=== PATIENT | female | born 1940 | race Caucasian/White ===

== ENCOUNTER → 2017-07-08 | Outpatient (CLI) | payer MEDICARE ==
--- NOTE | 2017-07-09 13:33 | MM ---
Reason for exam: screening (asymptomatic). Last mammogram was performed 1 year and 1 month ago. History: Patient is postmenopausal. Benign excisional biopsy of the left breast, 1959. Physical Findings: A clinical breast exam by your physician is recommended on an annual basis and results should be correlated with mammographic findings. MG 3D Screening Mammo W/Cad Bilateral CC and MLO view(s) were taken. Prior study comparison: June 19, 2016, bilateral MG 3d screening mammo w/cad. March 16, 2015, bilateral MG screening mammo w CAD. No significant changes when compared with prior studies. ASSESSMENT: Benign, BI-RAD 2 RECOMMENDATION: Routine screening mammogram of both breasts in 1 year.
== END | disposition home or self-care (01) ==
LOC: RADMAMWWP 10:31
PROVIDERS: ATTEND General Practice
DX: Z12.31 Encounter for screening mammogram for malignant neoplasm of breast (principal)
CPT/HCPCS: 77063; G0202

== ENCOUNTER 2017-12-01 09:38 | Emergency (ER) | payer MEDICARE ==
[2017-12-01 09:50] VITALS: RESP 18; TEMP 98.4
[2017-12-01 10:22] LABS: Basophils % (A) 0 %; Eosinophils # (A) 0.1 k/uL (0-0.7); Eosinophils % (A) 1 %; HCT 42.3 % (34.0-46.0); HGB 14.1 gm/dL (11.4-16.0); Lymphocytes # (A) 0.7 k/uL (1.0-4.8); Lymphocytes % (A) 6 %; MCH 30.5 pg (25.0-35.0); MCHC 33.4 g/dL (31.0-37.0); MCV 91.2 fL (80.0-100.0); Monocytes # (A) 0.3 k/uL (0-1.0); Monocytes % (A) 3 %; Neutrophils # (A) 10.7 k/uL (1.3-7.7); Neutrophils % (A) 90 %; Platelet Count 169 k/uL (150-450); RBC 4.64 m/uL (3.80-5.40); RDW 13.2 % (11.5-15.5); WBC 11.9 k/uL (3.8-10.6)
--- NOTE | 2017-12-01 10:28 | ED ---
GI Bleed HPI - General Chief complaint: GI Bleed Stated complaint: Blood in stool Time Seen by Provider: 12/01/17 10:01 Source: patient, family, RN notes reviewed Mode of arrival: ambulatory - History of Present Illness Initial comments: This is a 77-year-old female with no prior history of GI problems who states she developed diarrhea 2 days ago at times she would have crampy abdominal pain dizziness cold sweats. He states about 2 to 3:00 this morning he started developing bright red blood per rectum. She has urgency to have a bowel movement no other symptoms reported. No prior abdominal surgeries she states the pain was so severe was worse and she recalled with labor pains. No history of hemorrhoid problems. No abdominal surgeries. No recent foreign travel no fluids or eat by her but no one else in the family. MD complaint: gross hematochezia - Related Data Home Medications Medication Instructions Recorded Confirmed Milk Thistle 150 mg PO DAILY 05/25/16 12/01/17 Red Yeast Rice 600 mg PO DAILY 05/25/16 12/01/17 Ubidecarenone [Co Q-10] 100 mg PO DAILY 05/25/16 12/01/17 Atenolol (Unk. Dose) 1 tab PO QAM 12/01/17 12/01/17 Fluticasone Nasal [place] [Flonase 1 spray EA NOSTRIL DAILY PRN 12/01/17 12/01/17 Nasal [place]] Hydrochlorothiazide (Unk Dose) 1 tab PO QAM 12/01/17 12/01/17 Lipitor (Unk. Dose) 1 tab PO HS 12/01/17 12/01/17 Metformin (Unknown Dose) 1 tab PO DAILY 12/01/17 12/01/17 Potassium (Unk. Dose) 1 tab PO DIRECTED 12/01/17 12/01/17 Unknown Diuretic 1 tab PO DAILY 12/01/17 12/01/17 Previous Rx's Medication Instructions Recorded Dicyclomine [Bentyl] 10 mg PO TID #6 capsule 12/01/17 Hydrocortisone Suppository 25 mg RECTAL BID #10 supp 12/01/17 [Anusol-Hc] Allergies Allergy/AdvReac Type Severity Reaction Status Date / Time acetaminophen [From Tylenol] Allergy Itching Verified 12/01/17 10:58 Review of Systems ROS Statement: Those systems with pertinent positive or pertinent negative responses have been documented in the HPI. ROS Other: All systems not noted in ROS Statement are negative. Past Medical History Past Medical History: Diabetes Mellitus, Hyperlipidemia, Hypertension, Thyroid Disorder History of Any Multi-Drug Resistant Organisms: None Reported Additional Past Surgical History / Comment(s): Thyroid biopsy, lt wrist surgery Past Anesthesia/Blood Transfusion Reactions: No Reported Reaction Past Psychological History: No Psychological Hx Reported Smoking Status: Never smoker Past Alcohol Use History: None Reported Past Drug Use History: None Reported - Past Family History Mother Family Medical History: No Reported History General Exam - General Exam Comments Initial Comments: This is a well-developed well-nourished awake alert oriented 3 female General appearance: alert, in no apparent distress Head exam: Present: atraumatic, normocephalic, normal inspection Eye exam: Present: normal appearance, PERRL, EOMI. Absent: scleral icterus, conjunctival injection, periorbital swelling ENT exam: Present: normal exam, mucous membranes moist Neck exam: Present: normal inspection. Absent: tenderness, meningismus, lymphadenopathy Respiratory exam: Present: normal lung sounds bilaterally. Absent: respiratory distress, wheezes, rales, rhonchi, stridor Cardiovascular Exam: Present: regular rate, normal rhythm, normal heart sounds. Absent: systolic murmur, diastolic murmur, rubs, gallop, clicks GI/Abdominal exam: Present: soft, normal bowel sounds. Absent: distended, tenderness, guarding, rebound, rigid, bruit, pulsatile mass, hernia Rectal exam: Present: heme (+) stool, other (No masses some external hemorrhoids one is somewhat dark but nontender with no evidence of any active bleeding. Evidence of some internal hemorrhoids small amount of pink blood on the fingertip no masses on deep her examination.) Extremities exam: Present: normal inspection, full ROM, normal capillary refill. Absent: tenderness, pedal edema, joint swelling, calf tenderness Back exam: Present: normal inspection Neurological exam: Present: alert, oriented X3, CN II-XII intact Psychiatric exam: Present: normal affect, normal mood Skin exam: Present: warm, dry, intact, normal color. Absent: rash Course Vital Signs 12/01/17 12/01/17 12/01/17 09:47 11:38 12:58 Temperature 98.4 F Pulse Rate 80 71 79 Respiratory 18 18 18 Rate Blood Pressure 140/83 157/75 140/73 O2 Sat by Pulse 94 L 95 95 Oximetry 12/01/17 14:23 Temperature Pulse Rate 81 Respiratory 18 Rate Blood Pressure 157/76 O2 Sat by Pulse 95 Oximetry Medical Decision Making - Medical Decision Making I did discuss the findings the patient family members presentation is consistent with bleeding hemorrhoids after having diarrhea for 2 days. Hemoglobin and hematocrit are within normal limits. Patient did have hypokalemia which she has had a history of before she does take supplementation. Magnesium level was low normal and she was dehydrated. She did receive IV fluids IV magnesium oral past him. She will be discharged on appropriate medication with follow-up with her doctor and return when necessary - Lab Data Result diagrams: 12/01/17 10:06 12/01/17 10:06 Lab Results 12/01/17 12/01/17 12/01/17 Range/Units 10:06 10:06 10:06 WBC 11.9 H (3.8-10.6) k/uL RBC 4.64 (3.80-5.40) m/uL Hgb 14.1 (11.4-16.0) gm/dL Hct 42.3 (34.0-46.0) % MCV 91.2 (80.0-100.0) fL MCH 30.5 (25.0-35.0) pg MCHC 33.4 (31.0-37.0) g/dL RDW 13.2 (11.5-15.5) % Plt Count 169 (150-450) k/uL Neutrophils % 90 % Lymphocytes % 6 % Monocytes % 3 % Eosinophils % 1 % Basophils % 0 % Neutrophils # 10.7 H (1.3-7.7) k/uL Lymphocytes # 0.7 L (1.0-4.8) k/uL Monocytes # 0.3 (0-1.0) k/uL Eosinophils # 0.1 (0-0.7) k/uL Basophils # 0.0 (0-0.2) k/uL PT (9.0-12.0) sec INR (<1.2) APTT (22.0-30.0) sec Sodium 139 (137-145) mmol/L Potassium 3.1 L (3.5-5.1) mmol/L Chloride 98 (98-107) mmol/L Carbon Dioxide 29 (22-30) mmol/L Anion Gap 12 mmol/L BUN 29 H (7-17) mg/dL Creatinine 0.92 (0.52-1.04) mg/dL Est GFR (MDRD) Af Amer >60 (>60 ml/min/1.73 sqM) Est GFR (MDRD) Non-Af 59 (>60 ml/min/1.73 sqM) Glucose 223 H (74-99) mg/dL Calcium 9.5 (8.4-10.2) mg/dL Magnesium 1.6 (1.6-2.3) mg/dL Total Bilirubin 0.5 (0.2-1.3) mg/dL AST 25 (14-36) U/L ALT 37 (9-52) U/L Alkaline Phosphatase 85 (38-126) U/L Total Creatine Kinase 56 (30-135) U/L CK-MB (CK-2) 0.4 (0.0-2.4) ng/mL CK-MB (CK-2) Rel Index 0.7 Troponin I <0.012 (0.000-0.034) ng/mL Total Protein 6.4 (6.3-8.2) g/dL Albumin 4.1 (3.5-5.0) g/dL Lipase 112 (23-300) U/L Stool Occult Blood (Negative) Blood Type Blood Type Recheck Antibody Screen Spec Expiration Date 12/01/17 12/01/17 12/01/17 Range/Units 10:06 10:06 10:24 WBC (3.8-10.6) k/uL RBC (3.80-5.40) m/uL Hgb (11.4-16.0) gm/dL Hct (34.0-46.0) % MCV (80.0-100.0) fL MCH (25.0-35.0) pg MCHC (31.0-37.0) g/dL RDW (11.5-15.5) % Plt Count (150-450) k/uL Neutrophils % % Lymphocytes % % Monocytes % % Eosinophils % % Basophils % % Neutrophils # (1.3-7.7) k/uL Lymphocytes # (1.0-4.8) k/uL Monocytes # (0-1.0) k/uL Eosinophils # (0-0.7) k/uL Basophils # (0-0.2) k/uL PT 9.4 (9.0-12.0) sec INR 0.9 (<1.2) APTT 19.9 L (22.0-30.0) sec Sodium (137-145) mmol/L Potassium (3.5-5.1) mmol/L Chloride (98-107) mmol/L Carbon Dioxide (22-30) mmol/L Anion Gap mmol/L BUN (7-17) mg/dL Creatinine (0.52-1.04) mg/dL Est GFR (MDRD) Af Amer (>60 ml/min/1.73 sqM) Est GFR (MDRD) Non-Af (>60 ml/min/1.73 sqM) Glucose (74-99) mg/dL Calcium (8.4-10.2) mg/dL Magnesium (1.6-2.3) mg/dL Total Bilirubin (0.2-1.3) mg/dL AST (14-36) U/L ALT (9-52) U/L Alkaline Phosphatase (38-126) U/L Total Creatine Kinase (30-135) U/L CK-MB (CK-2) (0.0-2.4) ng/mL CK-MB (CK-2) Rel Index Troponin I (0.000-0.034) ng/mL Total Protein (6.3-8.2) g/dL Albumin (3.5-5.0) g/dL Lipase (23-300) U/L Stool Occult Blood Positive H (Negative) Blood Type AB Negative Blood Type Recheck CABO Indicated Antibody Screen NEGATIVE Spec Expiration Date 12/01/17 1200 Disposition Clinical Impression: Hemorrhoids, Diarrhea, Hypokalemia, Dehydration Disposition: HOME SELF-CARE Condition: Good Instructions: Rectal Bleeding (ED), Hemorrhoids (ED), Dehydration (ED), Hypokalemia (ED) Additional Instructions: Continue with your current potassium prescription Prescriptions: Dicyclomine [Bentyl] 10 mg PO TID #6 capsule Hydrocortisone Suppository [Anusol-Hc] 25 mg RECTAL BID #10 supp Referrals: Sanjana Campos MD [Primary Care Provider] - 1-2 days
[2017-12-01 10:29] LABS: ALT 37 U/L (9-52); AST 25 U/L (14-36); Albumin 4.1 g/dL (3.5-5.0); Alkaline Phosphatase 85 U/L (38-126); Anion Gap 12 mmol/L; Blood Urea Nitrogen 29 mg/dL (7-17); Calcium 9.5 mg/dL (8.4-10.2); Carbon Dioxide 29 mmol/L (22-30); Chloride 98 mmol/L (98-107); Glucose 223 mg/dL (74-99); Lipase 112 U/L (23-300); Magnesium 1.6 mg/dL (1.6-2.3); Potassium 3.1 mmol/L (3.5-5.1); Sodium 139 mmol/L (137-145); Total Bilirubin 0.5 mg/dL (0.2-1.3); Total Protein 6.4 g/dL (6.3-8.2)
[2017-12-01 10:39] LABS: Creatine Kinase 56 U/L (30-135); INR 0.9 (<1.2); Prothrombin Time 9.4 sec (9.0-12.0)
--- NOTE | 2017-12-01 10:45 | XR ---
EXAMINATION TYPE: XR chest 2V DATE OF EXAM: 12/01/2017 HISTORY: pain. REFERENCE: Previous study dated 07/23/2008. FINDINGS: Lung volumes are prominent. The heart is mildly enlarged. There is some scarring in the rig ht midlung. The lungs are otherwise clear. Pleural spaces are clear. IMPRESSION: 1. COPD. 2. MILD CARDIOMEGALY.
--- NOTE | 2017-12-01 10:46 | XR ---
EXAMINATION TYPE: XR abdomen 1V , 2 VIEWS DATE OF EXAM ORDERED: 12/01/2017 HISTORY: Pain. COMPARISON: None. FINDINGS: The lung bases are clear. Within the abdomen, the abdominal gas pattern is normal. There is no evidence of obstruction or free air. No unusual calcifications are identified. IMPRESSION: NO ACUTE INTRA-ABDOMINAL ABNORMALITY.
[2017-12-01 10:52] LABS: Creatine Kinase MB 0.4 ng/mL (0.0-2.4); Troponin I <0.012 ng/mL (0.000-0.034)
[2017-12-01 11:48] LABS: Partial Thromboplastin Time 19.9 sec (22.0-30.0)
[2017-12-01] MEDS ORDERED: SODIUM CHLORIDE 0.9% 1,000 ML IV STA (12:31)
[2017-12-01] MEDS ORDERED: MAGNESIUM SULFATE-D5W PMX 1 GM in DEXTROSE/WATER 1 100ML.BAG IVPB ONE (12:31)
[2017-12-01] MEDS ORDERED: POTASSIUM CHLORIDE ER 20 MEQ TAB.ER PO STA (12:31)
[2017-12-01] MEDS ORDERED: KETOROLAC 30 MG/ML 1 ML VIAL IVP STA (12:42)
[2017-12-01] MEDS ORDERED: ONDANSETRON 4 MG/2 ML VIAL IVP STA (12:42)
[2017-12-01 15:09] VITALS: BP 150/79; PULSE 80
== END 2017-12-01 15:08 | disposition home or self-care (01) ==
LOC: EC 09:38
DX: K64.4 Residual hemorrhoidal skin tags (principal); K64.8 Other hemorrhoids; E86.0 Dehydration; E87.6 Hypokalemia; R19.7 Diarrhea, unspecified; E78.5 Hyperlipidemia, unspecified; I10 Essential (primary) hypertension; E11.9 Type 2 diabetes mellitus without complications; Z88.6 Allergy status to analgesic agent; Z79.84 Long term (current) use of oral hypoglycemic drugs; Z79.899 Other long term (current) drug therapy
CPT/HCPCS: 36415; 86900; 86901; 80053; 82550; 82553; 83690; 83735; 84484; 85025; 85610; 85730; 86850; 82272; 71046; 74018; 99285; 96374; 96375 ×2; 96361 ×2; J2405; J1885; J3475

== ENCOUNTER → 2018-07-17 | Outpatient (CLI) | payer MEDICARE ==
--- NOTE | 2018-07-21 09:50 | MM ---
Reason for exam: screening (asymptomatic). Last mammogram was performed 1 year ago. History: Patient is postmenopausal. Benign excisional biopsy of the left breast, 1960. Physical Findings: A clinical breast exam by your physician is recommended on an annual basis and results should be correlated with mammographic findings. MG 3D Screening Mammo W/Cad Bilateral CC and MLO view(s) were taken. Prior study comparison: July 08, 2017, bilateral MG 3d screening mammo w/cad. June 19, 2016, bilateral MG 3d screening mammo w/cad. The breast tissue is heterogeneously dense. This may lower the sensitivity of mammography. No significant changes when compared with prior studies. ASSESSMENT: Benign, BI-RAD 2 RECOMMENDATION: Routine screening mammogram of both breasts in 1 year.
== END | disposition home or self-care (01) ==
LOC: RADMAMWWP 10:57
PROVIDERS: ATTEND General Practice
DX: Z12.31 Encounter for screening mammogram for malignant neoplasm of breast (principal)
CPT/HCPCS: 77063; 77067

== ENCOUNTER → 2019-08-01 | Outpatient (CLI) | payer MEDICARE ==
--- NOTE | 2019-08-03 09:35 | MM ---
Reason for exam: screening (asymptomatic). Last mammogram was performed 1 year ago. History: Patient is postmenopausal. Benign excisional biopsy of the left breast, 1960. Physical Findings: A clinical breast exam by your physician is recommended on an annual basis and results should be correlated with mammographic findings. MG 3D Screening Mammo W/Cad Bilateral CC and MLO view(s) were taken. Prior study comparison: July 17, 2018, bilateral MG 3d screening mammo w/cad. July 08, 2017, bilateral MG 3d screening mammo w/cad. The breast tissue is heterogeneously dense. This may lower the sensitivity of mammography. New nodule right posterior CC view. May be to stable nodule on right MLO. Additional work up recommended. ASSESSMENT: Incomplete: need additional imaging evaluation, BI-RAD 0 RECOMMENDATION: Special view mammogram of the right breast. If lesion persists on supplemental views, image directed ultrasound is recommended. [facility] will attempt to contact patient to return for supplemental views and ultrasound if indicated.
== END | disposition home or self-care (01) ==
LOC: RADMAMWWP 10:25
PROVIDERS: ATTEND General Practice
DX: Z12.31 Encounter for screening mammogram for malignant neoplasm of breast (principal)
CPT/HCPCS: 77063; 77067

== ENCOUNTER → 2019-08-13 | Outpatient (CLI) | payer MEDICARE ==
--- NOTE | 2019-08-13 11:04 | MM ---
Reason for exam: additional evaluation requested from abnormal screening. Last mammogram was performed less than 1 month ago. History: Patient is postmenopausal. Benign excisional biopsy of the left breast, 1960. Physical Findings: Nurse did not find any significant physical abnormalities on exam. MG 3D Work Up W/Cad RT Spot compression CC and LM view(s) were taken of the right breast. Prior study comparison: August 01, 2019, bilateral MG 3d screening mammo w/cad. July 17, 2018, bilateral MG 3d screening mammo w/cad. Nodular density consistent with a mole. These results were verbally communicated with the patient and result sheet given to the patient on 08/13/19. ASSESSMENT: Benign, BI-RAD 2 RECOMMENDATION: Return to routine screening mammogram schedule for both breasts.
== END | disposition home or self-care (01) ==
LOC: RADMAMWWP 10:00
PROVIDERS: ATTEND General Practice
DX: R92.8 Other abnormal and inconclusive findings on diagnostic imaging of breast (principal)
CPT/HCPCS: 77065; G0279; 77061